=== PATIENT | male | born 1985 | race African-American/Black ===

== ENCOUNTER 2021-04-07 09:11 | Emergency (ER) | payer BC | END 2021-04-07 10:33 | disposition home or self-care (01) | LOC: ERS 09:11 | DX: M25.572 Pain in left ankle and joints of left foot (principal); F17.210 Nicotine dependence, cigarettes, uncomplicated; X58.XXXA Exposure to other specified factors, initial encounter ==

== ENCOUNTER 2021-08-02 03:05 | Emergency (ER) | payer OTHER, BC ==
[2021-08-02 05:51] LABS: Acetaminophen Less than 6.0 mcg/mL (10.0-30.0); Salicylate Less than 8.0 mg/dL (15.0-30.0)
[2021-08-02 06:17] LABS: ALT (SGPT) 25 U/L (8-55); AST (SGOT) 25 U/L (5-34); Albumin 3.8 g/dL (3.5-5.0); Alkaline Phosphatase 113 U/L (40-110); Anion Gap 16 mmol/L (10-20); BUN (Urea Nitrogen) 10 mg/dL (8.9-20.6); Bilirubin, Total 0.3 mg/dL (0.2-1.2); Calc. Creatinine Clearance 0 mL/min (70-130); Calcium 9.8 mg/dL (7.8-10.44); Carbon Dioxide 24 mmol/L (22-29); Chloride 100 mmol/L (98-107); Globulin 5.3 g/dL (2.4-3.5); Glucose 98 mg/dL (70-105); Potassium 3.5 mmol/L (3.5-5.1); Protein, Total 9.1 g/dL (6.0-8.3); Sodium 136 mmol/L (136-145)
[2021-08-02 06:18] LABS: #Neutrophils 7.6 thou/uL (1.40-6.50); %Basophils 0.8 % (0.0-1.0); %Eosinophils 1.1 % (0.0-10.0); %Lymphocytes 16.7 % (21.0-51.0); %Monocytes 6.2 % (0.0-10.0); %Neutrophils 75.2 % (42.0-75.0); Hemoglobin 12.3 g/dL (14.0-18.0); Mean Corpuscular HGB CONC 34.1 g/dL (32.0-36.0); Mean Corpuscular Hemoglobin 30.6 pg (27.0-31.0); Mean Corpuscular Volume 89.7 fL (78.0-98.0); Mean Platelet Volume 6.8 fL (7.4-10.4); Platelet Count 531 thou/uL (130-400); RBC Distribution Width 12.9 % (11.5-14.5); Red Blood Cell (RBC) Count 4.01 mill/uL (4.70-6.10); White Blood Cell (WBC) Count 10.1 thou/uL (4.8-10.8)
[2021-08-02 06:19] LABS: #Basophils 0.1 thou/uL (0.0-0.2); #Eosinphils 0.1 thou/uL (0.0-0.7); #Lymphocytes 1.7 thou/uL (1.20-3.40); #Monocytes 0.6 thou/uL (0.11-0.59)
[2021-08-02 06:19] LABS: Alcohol Less than 10 mg/dL (Less than 10); CK (CPK) 430 U/L (30-200)
[2021-08-02] MEDS ORDERED: Iopamidol 370 76% 100 ML VIAL ONE (10:07)
== END 2021-08-02 07:40 | disposition home or self-care (01) ==
LOC: ERS 03:05
DX: S12.101A Unspecified nondisplaced fracture of second cervical vertebra, initial encounter for closed fracture (principal); V43.52XA Car driver injured in collision with other type car in traffic accident, initial encounter; Y92.410 Unspecified street and highway as the place of occurrence of the external cause
CPT/HCPCS: 36415; 70450; 70498; 71045; 71260; 72125; 74177; 80053; 80143; 80179; 80307; 82550; 83605; 85025; 86850; 86900; 86901; 93005; G0390; Q9967

== ENCOUNTER 2021-08-17 15:22 | Outpatient (CLI) | payer BC | END 2021-08-17 15:23 | disposition home or self-care (01) | LOC: BICRAD 15:22 | PROVIDERS: ATTEND Surgery | DX: S12.9XXA Fracture of neck, unspecified, initial encounter (principal) | CPT/HCPCS: 72040 ==

== ENCOUNTER 2021-09-14 11:42 | Outpatient (CLI) | payer BC | END 2021-09-14 11:43 | disposition home or self-care (01) | LOC: BICRAD 11:42 | PROVIDERS: ATTEND Surgery | DX: S12.9XXA Fracture of neck, unspecified, initial encounter (principal); M47.812 Spondylosis without myelopathy or radiculopathy, cervical region | CPT/HCPCS: 72040 ==

== ENCOUNTER 2021-11-07 08:39 | Outpatient (CLI) | payer BC | END 2021-11-07 08:40 | disposition home or self-care (01) | LOC: BICCT 08:39 | PROVIDERS: ATTEND Surgery | DX: S12.9XXD Fracture of neck, unspecified, subsequent encounter (principal); M47.812 Spondylosis without myelopathy or radiculopathy, cervical region; J98.4 Other disorders of lung | CPT/HCPCS: 72125 ==